=== PATIENT | female | born 1950 | race Caucasian/White ===

== ENCOUNTER 2017-12-12 11:51 | Emergency (ER) | payer OTHER ==
[~2017-12-12] VITALS: Ht 157.5 cm; Wt 59.8 kg
[2017-12-12 13:11] LABS: BASOPHIL (%) 0.3 % (0-1); BASOPHIL COUNT 0.1 K/uL (0-0.1); EOSINOPHIL (%) 0.4 % (0-5); EOSINOPHIL COUNT 0.1 K/uL (0-0.3); HEMATOCRIT 37.7 % (36.0-46.0); HEMOGLOBIN 13.3 G/DL (11.9-15.5); IMMATURE GRANULOCYTE (%) 0.7 % (0.0-0.7); LYMPHOCYTE (%) 13.6 % (15-42); LYMPHOCYTE COUNT 2.2 K/uL (1.0-2.8); MCH 31.4 PG (29.0-34.0); MCHC 35.3 G/DL (30.0-36.0); MCV 89.1 FL (83-99); MONOCYTE COUNT 0.6 K/uL (0-0.8); NEUTROPHIL COUNT 13.1 K/uL (1.8-6.4); PLATELET COUNT 412 K/uL (156-360); RBC DIS.WIDTH-CV 12.6 % (11.8-14.6); RBC DIS.WIDTH-SD 40.7 % (39-53); RED BLOOD COUNT 4.23 M/uL (3.80-5.20); WHITE BLOOD COUNT 16.2 K/uL (4.1-10.2)
[2017-12-12 14:29] LABS: CHLORIDE 94 mEq/L (99-109); POTASSIUM 4.4 mEq/L (3.7-5.4); SODIUM 127 mEq/L (136-147)
[2017-12-12 14:31] LABS: GLUCOSE 133 mg/dL (70-99); TOTAL PROTEIN 6.3 g/dL (6.4-8.3)
[2017-12-12 14:33] LABS: TOTAL BILIRUBIN 1.1 mg/dL (0.0-1.0)
[2017-12-12 14:35] LABS: ALKALINE PHOSPHATASE 96 IU/L (3-129); CREATININE 0.7 mg/dL (0.6-1.3)
[2017-12-12 14:36] LABS: UREA NITROGEN (BUN) 10 mg/dL (9-23)
[2017-12-12 14:37] LABS: AST (GOT) 19 IU/L (2-34)
[2017-12-12 14:38] LABS: ALT (GPT) 15 IU/L (3-49)
[2017-12-12 14:46] LABS: GFR ESTIMATE (CALCULATED) > 59 mL/min/
[2017-12-12 16:14] LABS: APPEARANCE CLEAR ((CLEAR)); BILIRUBIN NEGATIVE; BLOOD NEGATIVE; COLOR AMBER ((YELLOW)); GLUCOSE (STRIP) NEGATIVE; KETONES 5; LEUKOCYTES TRACE; NITRITE NEGATIVE; PROTEIN (STRIP) NEGATIVE; SPECIFIC GRAVITY 1.019 (1.000-1.030)
[2017-12-12 16:29] LABS: BACTERIA NONE SEEN /HPF; EPITHELIAL CELLS RARE /HPF; MUCUS TRACE /LPF; RED BLOOD CELLS 0-5 /HPF (0-5); UCUL ADDED? YES
[2017-12-12] MEDS ORDERED: MOTRIN600 MG PO (18:36)
[2017-12-12] MEDS ORDERED: PERCOCET 5/31 TABLET PO (18:36)
[2017-12-12] MEDS ORDERED: REGLAN10 MG PO (18:36)
[2017-12-12 20:16] VITALS: BP 120/62
== END 2017-12-12 20:17 | disposition home or self-care (01) ==
LOC: EME 11:51
PROVIDERS: Emergency Medicine
DX: K52.9 Noninfective gastroenteritis and colitis, unspecified (principal); R00.0 Tachycardia, unspecified; E87.1 Hypo-osmolality and hyponatremia; K57.30 Diverticulosis of large intestine without perforation or abscess without bleeding; R94.31 Abnormal electrocardiogram [ECG] [EKG]; J45.909 Unspecified asthma, uncomplicated; Z87.19 Personal history of other diseases of the digestive system; Z87.01 Personal history of pneumonia (recurrent)
CPT/HCPCS: 74176; 80053; 81003; 85025; 87086; 87493; 93005; 99281; 99285; J1630; J1885; J2765; J7040; J7120